=== PATIENT | female | born 1980 | race Caucasian/White ===

== ENCOUNTER 2022-08-12 00:03 | Outpatient (CLI) | payer OTHER, SELFPAY ==
--- NOTE | 2022-08-12 | DI.MAMMO_ITS ---
Exam(s) MAMMO SCREENING EXAM: MAMMO SCREENING CLINICAL HISTORY: SCREENING, Z12.31. TECHNIQUE: Bilateral full field digital CC and MLO mammographic images were obtained with 3D tomosyn thesis and utilizing computer aided detection (CAD). COMPARISON: None. This is a baseline mammogram on this 41-year-old patient. FINDINGS: There are no spiculated masses nor malignant appearing microcalcification groups. There is no significant architectural distortion nor skin thickening-retraction. IMPRESSION: No radiographic evidence of malignancy. BI-RADS Category 1 - Negative Breast Density - Category B - Scattered areas of fibroglandular density Breast density Category C or D implies that the patient has dense breast tissue. Dense breast tissue can make it harder to find cancer on a mammogram. Dense breast tissue is also associated with an incr eased risk of breast cancer. This information about the result of the mammogram report was provided to the patient to raise their awareness. Use this report when you speak with the patient about their risks for breast cancer, which includes their family history. At that time, you may recommend additional screening tests (Ultrasoun d or MRI) as these tests may add significant information. A negative radiographic report should not delay biopsy if a dominant or clinically suspicious mass is present. Up to ten percent of cancers are not identified on mammography. A negative report may reinforce clinical impression. Adenosis and dense breasts may obscure an underlying neoplasm. False positive reports average 6 to 10%. Patient will receive a letter notifying them of these results.
== END 2022-08-12 00:23 ==
PROVIDERS: PCP Internal Medicine; Visit Provider Advanced Practice Midwife
DX: Z12.31 Encounter for screening mammogram for malignant neoplasm of breast (principal)
CPT/HCPCS: 77063; 77067

== ENCOUNTER → 2023-08-31 04:14 | Outpatient (CLI) | payer OTHER, SELFPAY ==
--- NOTE | 2023-08-31 15:05 | DI.RAD_ITS ---
Exam(s) XR KNEE RT 3V AP,LAT,ZOHREH EXAM: XR KNEE RT 3V AP,LAT,ZOHREH CLINICAL HISTORY: ACUTE RT KNEE PAIN, M25.561. TECHNIQUE: 2D digital imaging was performed. Three views. COMPARISON: No exams were available for comparison FINDINGS: BONES: No acute fracture is present. No bony destructive lesion is seen. JOINTS: The knee is normally aligned. No joint effusion is seen. Joint spaces are maintained. No s ignificant degenerative changes. SOFT TISSUE: Normal. IMPRESSION: Unremarkable radiographs of the right knee. DATA REPOSITORY: RADIATION DOSE DELIVERED:
== END ==
PROVIDERS: PCP Internal Medicine; Visit Provider Internal Medicine
DX: M25.561 Pain in right knee (principal)
CPT/HCPCS: 73562

== ENCOUNTER → 2023-10-11 01:37 | Outpatient (CLI) | payer OTHER, SELFPAY ==
--- NOTE | 2023-10-11 11:20 | DI.MRI_ITS ---
Exam(s) MR LOWER JOINT RT WO EXAM: MR LOWER JOINT RT WO CLINICAL HISTORY: PAIN IN R KNEE, M25.561 TECHNIQUE: Multiplanar multisequence MRI of the knee was performed. COMPARISON: CR XR KNEE RT 3V AP,LAT,ZOHREH from 08/31/2023 FINDINGS: EFFUSION: There is a E very large knee joint effusion as well as a very prominent Bradley cyst in the m edial popliteal fossa which measures 11 cm craniocaudal by 4 cm AP by 3 cm wide.. What is interestin g about this joint effusion is that there is significant synovial thickening throughout including and most prominent within the Bradley cyst. MARROW:There are no fractures. There is mild subarticular bone contusion signal in the outer aspects of both sides the tibial plateau.. There is mild increased signal within the most anterior aspect o f the patella, not associated with fracture line. There are no significant osseous lesions. PATELLOFEMORAL COMPARTMENT: The quadriceps tendon is intact. The patellar ligament is intact. There is no significant thinning of the retropatellar cartilage. No evidence of fissure nor signific ant chondral defect. No osteochondral defect at this level.There is no intraosseous signal to sugges t recent patellar dislocation. There are no patellar retinacular tears. The medial patellar retinacu lum is bowed outwards by prominent joint effusion but is not torn. CRUCIATE LIGAMENTS: The anterior cruciate ligament is intact.The posterior cruciate ligament is intac t. MEDIAL COMPARTMENT/MEDIAL MENISCUS: There are no tears of the medial meniscus evident.. There are no chondral defects, osteochondral defects, subarticular marrow edema, nor osteophytes evid ent. MEDIAL COLLATERAL LIGAMENT: There is some fluid interposed between the deep and superficial component s of the medial collateral ligament but no high-grade tear of this structure. LATERAL COMPARTMENT/LATERAL MENISCUS: There is no evidence of lateral meniscal tear.There is very mil d subarticular edema over the main weight-bearing surface of the lateral femoral condyle. There is m ild thinning of the articular cartilage at this level but no prominent chondral defect, nor osteochon dral defects, nor osteophytes evident. ILIOTIBIAL BAND: Intact LATERAL COLLATERAL LIGAMENT COMPLEX: The fibular collateral ligament is intact. The biceps femoris tendon is intact.Popliteus muscle and tendon are intact. IMPRESSION: 1. The main finding here is a large knee joint effusion which is peculiar given its size, associated very large Bradley's cyst in the medial popliteal fossa, plus the fact that it contains prominent abnor mal debris and synovial thickening. There is also no significant internal derangement of the interna l structures of the knee to explain this prominent and unconventional appearing joint effusion. Ther e is also no evidence of puncture wound nor subcutaneous tract. 2. Recommend consider sampling of the fluid of this huge joint effusion/Bradley's cyst 3. No evidence of synovial osteochondromatosis. Also not typical appearance of pigmented villonodula r synovitis. DATA REPOSITORY:
== END ==
PROVIDERS: PCP Internal Medicine; Visit Provider Internal Medicine
DX: M25.561 Pain in right knee (principal); M25.469 Effusion, unspecified knee; M71.22 Synovial cyst of popliteal space [Baker], left knee
CPT/HCPCS: 73721

== ENCOUNTER 2023-10-31 09:25 | Outpatient (REF) | payer OTHER, SELFPAY ==
[2023-10-31 10:51] LABS: Clarity Cloudy; Nucleated Cells 4878 uL (0)
[2023-10-31 10:52] LABS: Crystals (BF) No Crystals seen
[2023-10-31 10:53] LABS: Mononuclear Cells 17 %; Polynuclear Cells 83 %
[2023-11-03 16:56] LABS: Specimen Source Synovial
== END 2023-10-31 09:26 | disposition home or self-care (01) ==
LOC: LBN 09:25
PROVIDERS: PCP Internal Medicine; Referring Provider Internal Medicine; Visit Provider Student in an Organized Health Care Education/Training Program
DX: M25.461 Effusion, right knee (principal)
CPT/HCPCS: 87476; 87798; 87070; 87205; 89051; 89060

== ENCOUNTER 2023-10-31 09:52 | Outpatient (CLI) | payer OTHER, SELFPAY ==
[2023-10-31 10:19] LABS: Abs Immature Grans 0.02 10^3/uL (0.0-0.06); Absolute Basophil Count 0.02 10^3/uL (0.0-0.2); Absolute Eosinophil Count 0.09 10^3/uL (0.0-0.7); Absolute Lymphocyte Count 1.53 10^3/uL (1.2-3.4); Absolute Neutrophil Count 3.92 10^3/uL (1.2-6.7); Basophils % 0.3 %; Eosinophils % 1.5 %; HCT 38.7 % (36.0-46.0); HGB 13.1 g/dL (11.2-15.7); Immature Grans % 0.3 %; Lymphocytes % 25.2 %; MCH 32.5 pg (27.0-33.0); MCHC 33.9 % (32.0-36.0); MCV 96 fL (80-95); MPV 10.7 fL (8.0-11.0); Monocytes % 8.2 %; Neutrophils % 64.5 %; Platelet Count 294 10^3/uL (130-400); RBC 4.03 10^6/uL (3.93-5.22); RDW 11.6 % (11.7-14.6); RDW-SD 40.5 fL; WBC 6.08 10^3/uL (4.4-10.8)
[2023-10-31 10:30] LABS: ESR 7 mm/hr (0-20)
[2023-10-31 10:49] LABS: C-Reactive Protein 2.17 mg/dL (<or=0.5)
[2023-10-31 18:31] LABS: Rheumatoid Factor <8.6 IU/mL (<12.0)
[2023-11-01 10:11] LABS: Cyclic Citrullinated Peptide <2.5 U/mL (<5.0)
[2023-11-01 11:48] LABS: Lyme Ab w Rflx to Lyme Confirm Positive (Negative)
[2023-11-01 13:30] LABS: ANA Interpretation Positive (Negative); ANA Titer Pattern 1:80 Speckled
[2023-11-01 15:56] LABS: Lyme IgG Ab Negative (Negative); Lyme IgM Ab Negative (Negative)
[2023-11-02 20:23] LABS: Anaplasma phagocytophilum Negative (Negative); B. miyamotoi PCR Negative (Negative); Babesia divergens/MO-1 Negative (Negative); Babesia duncani Negative (Negative); Babesia microti Negative (Negative); Ehrlichia chaffeensis Negative (Negative); Ehrlichia ewingii/canis Negative (Negative); Ehrlichia muris eauclairensis Negative (Negative)
== END 2023-10-31 09:53 | disposition home or self-care (01) ==
LOC: LBO 09:52
PROVIDERS: PCP Internal Medicine; Visit Provider Student in an Organized Health Care Education/Training Program
DX: M25.461 Effusion, right knee (principal)
CPT/HCPCS: 36415; 85652; 86200; 86617; 87798; 85025; 86038; 86140; 86431; 86618; 87070; 87205

== ENCOUNTER → 2023-11-03 00:29 | Outpatient (CLI) | payer OTHER, SELFPAY ==
--- NOTE | 2023-11-03 | DI.MAMMO_ITS ---
Exam(s) MAMMO SCREENING EXAM: MAMMO SCREENING CLINICAL HISTORY: SCREENING, Z12.31 TECHNIQUE: Bilateral full field digital CC and MLO mammographic images were obtained with 3D tomosyn thesis and utilizing computer aided detection (CAD). COMPARISON: Available for comparison. FINDINGS: Masses/Architectural Distortion: None seen. Microcalcifications: No suspicious pleomorphic-type are seen. Skin Thickening/Nipple Retraction: None. IMPRESSION: 1. No significant interval change with no specific features of malignancy noted. 2. Unless there is more urgent need, screening mammography is recommended, as per [employer] guidelines. BI-RADS Category 1 - Negative Breast Density - Category B - Scattered areas of fibroglandular density Breast density category C or D implies that the patient has dense breast tissue. Dense breast tissue is very common and is not abnormal but dense breast tissue can make it harder to find cancer on a ma mmogram. Also, dense breast tissue may increase their breast cancer risk. This information about the result of the mammogram report was provided to the patient to raise their awareness. Use this report when you speak with the patient about their risks for breast cancer, which includes their family hist ory. At that time, you may recommend for more screening tests (Ultrasound or MRI) as they might be us eful based on their risk. A negative radiographic report should not delay biopsy if a dominant or clinically suspicious mass is present. Up to ten percent of cancers are not identified on mammography. A negative report may reinforce clinical impression. Adenosis and dense breasts may obscure an underlying neoplasm. False positive reports average 6 to 10%. Patient will receive a letter notifying them of these results.
== END ==
PROVIDERS: PCP Internal Medicine; Visit Provider Advanced Practice Midwife
DX: Z12.31 Encounter for screening mammogram for malignant neoplasm of breast (principal)
CPT/HCPCS: 77063; 77067

== ENCOUNTER 2023-12-15 01:20 | Outpatient (CLI) | payer OTHER, SELFPAY ==
[2023-12-18 12:24] LABS: Lyme Ab w Rflx to Lyme Confirm Positive (Negative)
[2023-12-18 13:39] LABS: Lyme IgG Ab Negative (Negative); Lyme IgM Ab Negative (Negative)
== END 2023-12-15 01:21 | disposition home or self-care (01) ==
LOC: LBO 01:20
PROVIDERS: Physician Assistant; PCP Internal Medicine; Visit Provider Student in an Organized Health Care Education/Training Program
DX: M25.462 Effusion, left knee (principal); M25.461 Effusion, right knee
CPT/HCPCS: 36415; 86617; 86140; 86618

== ENCOUNTER 2024-01-26 02:05 | Outpatient (CLI) | payer OTHER, SELFPAY ==
[2024-01-29 11:08] LABS: Lyme Ab w Rflx to Lyme Confirm Negative (Negative)
[2024-01-30 21:38] LABS: Anaplasma phagocytophilum Negative (Negative); B. miyamotoi PCR Negative (Negative); Babesia divergens/MO-1 Negative (Negative); Babesia duncani Negative (Negative); Babesia microti Negative (Negative); Ehrlichia chaffeensis Negative (Negative); Ehrlichia ewingii/canis Negative (Negative); Ehrlichia muris eauclairensis Negative (Negative)
== END 2024-01-26 02:06 | disposition home or self-care (01) ==
LOC: LBO 02:05
PROVIDERS: PCP Internal Medicine; Visit Provider Internal Medicine
DX: A69.23 Arthritis due to Lyme disease (principal)
CPT/HCPCS: 36415; 87798; 86618

== ENCOUNTER 2024-06-11 14:48 | Outpatient (CLI) | payer OTHER, SELFPAY ==
[2024-06-11 14:12] LABS: Abs Immature Grans 0.03 10^3/uL (0.0-0.06); Absolute Basophil Count 0.03 10^3/uL (0.0-0.2); Absolute Eosinophil Count 0.24 10^3/uL (0.0-0.7); Absolute Lymphocyte Count 2.19 10^3/uL (1.2-3.4); Absolute Monocyte Count 0.51 10^3/uL (0.1-0.8); Absolute Neutrophil Count 4.88 10^3/uL (1.2-6.7); Basophils % 0.4 %; HCT 40.3 % (36.0-46.0); Immature Grans % 0.4 %; Lymphocytes % 27.8 %; MCH 33.3 pg (27.0-33.0); MCHC 34.7 % (32.0-36.0); MCV 96 fL (80-95); MPV 10.1 fL (8.0-11.0); Monocytes % 6.5 %; Neutrophils % 61.9 %; Platelet Count 251 10^3/uL (130-400); RDW 11.2 % (11.7-14.6); RDW-SD 39.6 fL; WBC 7.88 10^3/uL (4.4-10.8)
[2024-06-11 15:20] LABS: ALT 27 U/L (14-59); AST 22 U/L (15-37); Albumin 4.2 g/dL (3.4-5.0); Alkaline Phosphatase 75 U/L (46-116); Anion Gap 7.7 mmol/L (3-11); BUN 14 mg/dL (7-18); Bilirubin, Total 0.39 mg/dL (0.2-1.0); CO2 28.3 mmol/L (21.0-32.0); CREATININE 0.9 mg/dL (0.55-1.02); Calcium 9.9 mg/dL (8.5-10.1); Calculated LDL 117 mg/dL (<100); Chloride 103 mmol/L (98-107); Cholesterol 210 mg/dL (<200); Estimated GFR 80.84 (mL/min/1.73m2); Glucose 98 mg/dL (74-106); HDL Cholesterol 70 mg/dL (>or=50); Potassium 4.1 mmol/L (3.5-5.1); Sodium 139 mmol/L (136-145); TSH 2.33 uIU/mL (0.36-3.74); Triglyceride 117 mg/dL (<150)
== END 2024-06-11 14:49 | disposition home or self-care (01) ==
LOC: LBO 14:48
PROVIDERS: PCP Internal Medicine; Visit Provider Internal Medicine
DX: D64.9 Anemia, unspecified (principal); R73.01 Impaired fasting glucose; E78.5 Hyperlipidemia, unspecified
CPT/HCPCS: 36415; 80053; 80061; 84443; 85025

== ENCOUNTER 2024-11-15 00:43 | Outpatient (CLI) | payer OTHER, SELFPAY ==
--- NOTE | 2024-11-15 | DI.MAMMO_ITS ---
Exam(s) MAMMO SCREENING EXAM: MAMMO SCREENING CLINICAL HISTORY: SCREENING. TECHNIQUE: Bilateral full field digital CC and MLO mammographic images were obtained with 3D tomosynthesis and utilizing computer aided detection (CAD). COMPARISON: Prior mammograms were reviewed. FINDINGS: There has been no significant change in the appearance and distribution of the fibroglandular tissue. There are no new spiculated masses nor malignant appearing microcalcification groups. There is no significant architectural distortion nor skin thickening-retraction. IMPRESSION: No radiographic evidence of malignancy. BI-RADS Category 1 - Negative Breast Density - Category B - There are scattered areas of fibroglandular density. Breast density Category C or D implies that the patient has dense breast tissue. Dense breast tissue can make it harder to find cancer on a mammogram. Dense breast tissue is also associated with an increased risk of breast cancer. This information about the result of the mammogram report was provided to the patient to raise their awareness. Use this report when you speak with the patient about their risks for breast cancer, which includes their family history. At that time, you may recommend additional screening tests (Ultrasound or MRI) as these tests may add significant information. A negative radiographic report should not delay biopsy if a dominant or clinically suspicious mass is present. Up to ten percent of cancers are not identified on mammography. A negative report may reinforce clinical impression. Adenosis and dense breasts may obscure an underlying neoplasm. False positive reports average 6 to 10%. Patient will receive a letter notifying them of these results.
== END 2024-11-15 01:03 ==
LOC: DI 00:43
PROVIDERS: PCP Internal Medicine; Visit Provider Advanced Practice Midwife
DX: Z12.31 Encounter for screening mammogram for malignant neoplasm of breast (principal); R92.323 Mammographic fibroglandular density, bilateral breasts
CPT/HCPCS: 77063; 77067